=== PATIENT | male | born 1980 | race American Indian/Alaskan Native ===

== ENCOUNTER 2021-10-16 21:20 | Emergency (ER) | payer SELFPAY ==
[2021-10-16 22:40] VITALS: BP 166/114
--- NOTE | 2021-10-17 01:08 | Emergency Department Report ---
ED General Adult HPI - General Chief complaint: Extremity Injury, Upper Stated complaint: FINGER SWOLLEN Time Seen by Provider: 10/16/21 22:45 Source: patient Mode of arrival: Ambulatory Limitations: No Limitations - Related Data Previous Rx's Medication Instructions Recorded Last Taken Type Chlorhexidine Gluconate [Hibiclens] 10 ml TP BID #240 liquid 10/17/21 Unknown Rx clindamycin HCL [Clindamycin cap] 75 mg PO Q8HR #30 cap 10/17/21 Unknown Rx Allergies Allergy/AdvReac Type Severity Reaction Status Date / Time Penicillins Allergy Mild Rash Verified 10/16/21 22:40 ED Review of Systems ROS: Stated complaint: FINGER SWOLLEN Other details as noted in HPI ED Past Medical Hx - Medications Home Medications: Home Medications Medication Instructions Recorded Confirmed Last Taken Type Chlorhexidine Gluconate [Hibiclens] 10 ml TP BID #240 liquid 10/17/21 Unknown Rx clindamycin HCL [Clindamycin cap] 75 mg PO Q8HR #30 cap 10/17/21 Unknown Rx ED Physical Exam - General Limitations: No Limitations General appearance: alert, in no apparent distress - Head Head exam: Present: atraumatic, normocephalic - Eye Eye exam: Present: normal appearance, PERRL Pupils: Present: normal accommodation - ENT ENT exam: Present: mucous membranes moist - Neck Neck exam: Present: normal inspection - Respiratory Respiratory exam: Present: normal lung sounds bilaterally. Absent: respiratory distress - Cardiovascular Cardiovascular Exam: Present: regular rate, normal rhythm. Absent: systolic murmur, diastolic murmur, rubs, gallop - GI/Abdominal GI/Abdominal exam: Present: soft, normal bowel sounds - Rectal Rectal exam: Present: deferred - Extremities Exam Extremities exam: Present: normal inspection, tenderness (To the right finger third digit drain in place embedded in finger with some swelling around the unable to remove the ring. Some purulent drainage is present. Cap refill still brisk. Still has good range of motion sensation intact) - Back Exam Back exam: Present: normal inspection - Neurological Exam Neurological exam: Present: alert, oriented X3 - Psychiatric Psychiatric exam: Present: normal affect, normal mood - Skin Skin exam: Present: warm, dry, intact, normal color. Absent: rash ED Course Vital Signs 10/16/21 22:35 Temperature 98.8 F Pulse Rate 106 H Respiratory 18 Rate Blood Pressure 166/114 [Right] O2 Sat by Pulse 100 Oximetry ED Medical Decision Making - Medical Decision Making A 41-year-old male presents emergency department complaining of tenderness to the ring finger after ring was embedded in finger Ethamide for 3 to 4 days with some purulent drainage. The ring was removed with ring cutters with no trauma to the finger. Critical care attestation.: If time is entered above; I have spent that time in minutes in the direct care of this critically ill patient, excluding procedure time. ED Disposition Clinical Impression: Injury of ring finger, Foreign body finger, Finger abrasion, infected Disposition: 01 HOME / SELF CARE / HOMELESS Is pt being admited?: No Does the pt Need Aspirin: No Condition: Stable Instructions: Skin Foreign Body, Abrasion
== END 2021-10-17 02:12 | disposition home or self-care (01) ==
LOC: ED 21:20
DX: S60.419A Abrasion of unspecified finger, initial encounter (principal); S60.459A Superficial foreign body of unspecified finger, initial encounter; B96.89 Other specified bacterial agents as the cause of diseases classified elsewhere; X58.XXXA Exposure to other specified factors, initial encounter; Y93.89 Activity, other specified; Y92.89 Other specified places as the place of occurrence of the external cause; Y99.8 Other external cause status
CPT/HCPCS: 99282